=== PATIENT | male | born 1970 | race Caucasian/White ===

== ENCOUNTER → 2016-11-22 | Outpatient (CLI) | payer OTHER ==
[~2016-11-22] MED LIST: CLX20 PO; OMEP20CA9 PO
== END | disposition home or self-care (01) ==
LOC: C.LABMFLN 09:58 → MERGE 09:58
PROVIDERS: ATTEND Family Medicine
DX: Z12.5 Encounter for screening for malignant neoplasm of prostate (principal); N39.0 Urinary tract infection, site not specified

== ENCOUNTER 2017-09-18 13:04 | Emergency (ER) | payer OTHER ==
[~2017-09-18] VITALS: Ht 180.3 cm; Wt 91.0 kg
[2017-09-18 13:06] VITALS: TEMP 36.9; Ht 180.3 cm; Wt 91.0 kg
[2017-09-18] MEDS ORDERED: IBUPROFEN 600 MG TAB PO STA (13:13)
--- NOTE | 2017-09-18 13:35 | DIAGNOSTIC IMAGING REPORT ---
L HAND MIN 3 VIEWS ROUTINE CLINICAL HISTORY: Left hand pain status post trauma COMPARISON: None. DISCUSSION: No acute fractures or dislocations are visualized. There are osteoarthritic changes the level the first carpal metacarpal joint. There is a suspected tiny radial styloid erosion. IMPRESSION: 1. No acute fractures 2. Osteoarthritic changes the level the first carpal metacarpal joint 3. Tiny radial styloid erosion Electronically signed by: Reynaldo Najera M.D. 09/18/2017 1:33 PM Dictated Date/Time: 09/18/2017 1:32 PM
--- NOTE | 2017-09-18 14:00 | EMERGENCY ROOM VISIT NOTE ---
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 The patient states this morning when he was rounding at approximately 8:30 AM he accidentally hit his left hand off of a cell door. He states initially it did not bother him but as the day went on he has no swelling and more pain especially with gripping in his left hand. The patient is right-hand dominant. The patient denies any prior injury to his right hand. He did not ice it or take any ibuprofen for pain. REVIEW OF SYSTEMS: 6 system review was performed and was negative unless stated otherwise in history of present illness. PMH: The patient is healthy; kidney stones SOCIAL HISTORY: Patient lives with his family. The patient denies any tobacco or alcohol use. PHYSICAL EXAM: Vital Signs: Were reviewed Reviewed Nurse's notes. GEN.: 47-year -old male appears in no acute distress. MENTAL Status: Alert and oriented 3. LEFT HAND: No gross bony deformity noted. Patient has some edema and mild erythema noted over the first carpal metacarpal joint .the patient has full range of motion of all fingers. The skin is intact. EMERGENCY DEPARTMENT COURSE: The patient was evaluated. The patient was given Motrin 600 mg by mouth for pain. X-ray of the left hand was ordered interpreted by the radiologist and myself. DIAGNOSTICS:L HAND MIN 3 VIEWS ROUTINE CLINICAL HISTORY: Left hand pain status post trauma COMPARISON: None. DISCUSSION: No acute fractures or dislocations are visualized. There are osteoarthritic changes the level the first carpal metacarpal joint. There is a suspected tiny radial styloid erosion. IMPRESSION: 1. No acute fractures 2. Osteoarthritic changes the level the first carpal metacarpal joint 3. Tiny radial styloid erosion Electronically signed by: Reynaldo Najera M.D. 09/18/2017 1:33 PM Dictated Date/Time: 09/18/2017 1:32 PM The patient was informed of the findings. The patient was placed in a removable thumb spica splint and discharged home in stable condition. DIAGNOSIS: Left Hand contusion DISCHARGE INSTRUCTIONS & TREATMENT: Ibuprofen, 600 mg every 6 hours for pain. Wear hand splint until pain is tolerable without it. Ice intermittently over the next 24 hours. If symptoms persist or worsen, follow-up with your family doctor or orthopedics. Current/Historical Medications Scheduled Omeprazole (Prilosec), 20 MG PO DAILY Allergies Coded Allergies: No Known Allergies (Unverified , 09/18/17) Vital Signs Date Time Temp Pulse Resp B/P (MAP) Pulse Ox O2 Delivery O2 Flow Rate FiO2 09/18/17 13:06 36.9 78 17 130/85 99 Room Air Medications Administered Medications (Trade) Dose Ordered Sig/Yojana Route Start Time Stop Time Status Last Admin Dose Admin Ibuprofen (Motrin Tab) 600 mg NOW STAT PO 09/18/17 13:13 09/18/17 13:14 DC 09/18/17 13:24 600 MG Departure Information Referrals Nash Lynch M.D. (PCP) Patient Instructions My [facility]
[2017-09-18 14:49] VITALS: BP 134/78; PULSE 62; O2SAT 99
== END 2017-09-18 14:15 | disposition home or self-care (01) ==
LOC: C.EDB 13:05 → C.EDD 14:15
DX: S60.222A Contusion of left hand, initial encounter (principal); W22.8XXA Striking against or struck by other objects, initial encounter; Z87.442 Personal history of urinary calculi

== ENCOUNTER → 2017-12-12 | Outpatient (CLI) | payer OTHER ==
[~2017-12-12] MED LIST changes: -CLX20 PO
--- NOTE | 2017-12-12 20:49 | DIAGNOSTIC IMAGING REPORT ---
R LOWER EXT JOINT WITHOUT CLINICAL HISTORY: 47 years-old Male presenting with right ankle and foot pain for 2 years, aggravated with height and activity, history of twisted ankle, pain primarily on the lateral aspect. TECHNIQUE: Multisequence, multiplanar MR imaging of the right ankle was performed without the use of intravenous contrast. IV contrast: None. COMPARISON: None. FINDINGS: Localizer images: Unremarkable. Focal bony edema in the talus at the posterior talocalcaneal joint at the lateral process with subchondral cystic change also noted. This region is well-circumscribed on T1-weighted imaging as a focal lenticular T1 hypointense region. No subjacent fluid signal intensity to suggest instability. No other sites of bony edema. Articular cartilage loss in both the talus and opposing articular surface of the calcaneus at this site. Fluid noted within the tendon sheaths of the tibialis posterior at the level of the anterior process of the talus. This suggests tenosynovitis. Fluid also noted within the tendon sheaths of the flexor digitorum longus and flexor hallucis longus, which likely relate to the presence of an ankle joint effusion. Longitudinal tear of the peroneus brevis tendon suspected. Peroneus longus tendon intact. Tibialis anterior, extensor hallucis longus, and extensor digitorum longus tendons intact. Achilles tendon intact. Plantar fascia intact. Anterior inferior and posterior inferior tibiofibular ligaments intact. Anterior talofibular ligament intact. Increased signal intensity within the posterior talofibular ligament may suggest chronic injury. Calcaneofibular ligament intact. Deltoid ligament intact. Mild fatty infiltration of the K[place] fat pad. Distention of the retrocalcaneal bursa. Normal muscle bulk and muscle signal intensity. Superficial soft tissues within normal limits. IMPRESSION: 1. Findings concerning for osteochondral lesion of the talus at the lateral process of the posterior talocalcaneal joint. This does not appear unstable. 2. Longitudinal tear of the peroneus brevis. 3. Tenosynovitis of the tibialis posterior tendon. 4. Findings could suggest mild retrocalcaneal bursitis. 5. Joint effusion. Electronically signed by: Luigi Bro M.D. 12/12/2017 8:48 PM Dictated Date/Time: 12/12/2017 4:34 PM
== END | disposition home or self-care (01) ==
LOC: C.MRI 15:34
PROVIDERS: ATTEND Physician Assistant
DX: S86.311A Strain of muscle(s) and tendon(s) of peroneal muscle group at lower leg level, right leg, initial encounter (principal); X58.XXXA Exposure to other specified factors, initial encounter; M76.821 Posterior tibial tendinitis, right leg